=== PATIENT | female | born 1960 | race Two or more races ===

== ENCOUNTER 2017-07-26 12:57 | Outpatient (CLI) | payer OTHER ==
[~2017-07-26 12:57] MED LIST: AMARYL; ATACAND4 MG PO; CIPRO500 MG PO; CITALOPRAM HBR20 MG PO; GLUCOPHAGE XR500 MG PO; GLUMETZA1000 MG PO; GLYXAMBI 25 MG1 EACH PO; INTESTINEX1 CA1 PO; LOSARTAN POTASS25 MG PO; METFORMIN; SYNTHROID50 MCG PO; TRESIBA FL100 UNIT/1 SQ; ULTRACET PO; ULTRAM ER100 MG PO
== END 2017-07-26 14:57 | disposition home or self-care (01) ==
LOC: RAD 12:57
DX: M16.9 Osteoarthritis of hip, unspecified (principal)

== ENCOUNTER 2017-08-17 08:56 | Outpatient (CLI) | payer OTHER | END 2017-08-17 08:58 | disposition home or self-care (01) | LOC: NUCLEAR 08:56 | DX: M80.00XA Age-related osteoporosis with current pathological fracture, unspecified site, initial encounter for fracture (principal); M81.0 Age-related osteoporosis without current pathological fracture | CPT/HCPCS: 78306; A9503 ==

== ENCOUNTER 2019-03-08 12:42 | Emergency (ER) | payer OTHER ==
[~2019-03-08] VITALS: Ht 180.3 cm; Wt 81.6 kg
[2019-03-08] MEDS ORDERED: LEVOTHYROXINE25 MCG (13:04)
[2019-03-08] MEDS ORDERED: HUMALOG MI100 UNIT/2 (13:05)
[2019-03-08] MEDS ORDERED: TRULICITY1.5 MG/0.5 (13:05)
== END 2019-03-08 17:34 | disposition home or self-care (01) ==
LOC: ER 12:42
DX: M54.5 Low back pain (principal); R10.2 Pelvic and perineal pain

== ENCOUNTER 2020-02-07 06:21 | Outpatient (CLI) | payer OTHER ==
[~2020-02-07 06:21] MED LIST changes: +HUMALOG MI100 UNIT/2; +LEVOTHYROXINE25 MCG; +TRULICITY1.5 MG/0.5
== END 2020-02-07 07:03 | disposition home or self-care (01) ==
LOC: LAB 06:21
PROVIDERS: ATTEND Internal Medicine
DX: D50.0 Iron deficiency anemia secondary to blood loss (chronic) (principal); E78.2 Mixed hyperlipidemia; R94.5 Abnormal results of liver function studies; N39.0 Urinary tract infection, site not specified; E03.8 Other specified hypothyroidism; E11.65 Type 2 diabetes mellitus with hyperglycemia

== ENCOUNTER 2020-10-23 11:44 | Outpatient (CLI) | payer OTHER | END 2020-10-23 11:55 | disposition home or self-care (01) | LOC: RAD 11:44 → NUCLEAR 14:00 | PROVIDERS: ATTEND Internal Medicine | DX: M25.552 Pain in left hip (principal) ==

== ENCOUNTER 2020-10-23 13:41 | Outpatient (CLI) | payer OTHER | END 2020-10-23 13:42 | disposition home or self-care (01) | LOC: NUCLEAR 13:41 | PROVIDERS: ATTEND Specialist | DX: M81.0 Age-related osteoporosis without current pathological fracture (principal) ==

== ENCOUNTER 2020-11-19 10:05 | Emergency (ER) | payer OTHER ==
[~2020-11-19] VITALS: Ht 177.8 cm; Wt 81.6 kg
[2020-11-19] MEDS ORDERED: HUMALOG100 UNIT/2 SQ (10:31)
[2020-11-19] MEDS ORDERED: LANTUS SOL100 UNIT/1 SQ (10:32)
[2020-11-19] MEDS ORDERED: OZEMPIC1 MG/0.71 SQ (10:32)
[2020-11-19] MEDS ORDERED: NASAL MIST126 ML (10:33)
[2020-11-19] MEDS ORDERED: ALTACE2.5 MG PO (10:33)
[2020-11-19] MEDS ORDERED: SYNJARDY 12.5-1 EACH PO (10:33)
[2020-11-19] MEDS ORDERED: GLIMEPIRIDE4 M1 PO (10:33)
== END 2020-11-19 14:44 | disposition home or self-care (01) ==
LOC: ER 10:05
DX: S20.211A Contusion of right front wall of thorax, initial encounter (principal); W18.09XA Striking against other object with subsequent fall, initial encounter; Y93.89 Activity, other specified; Y92.89 Other specified places as the place of occurrence of the external cause; Y99.8 Other external cause status

== ENCOUNTER 2020-12-13 08:00 | Outpatient (CLI) | payer OTHER ==
[~2020-12-13 08:00] MED LIST changes: +ALTACE2.5 MG PO; +GLIMEPIRIDE4 M1 PO; +HUMALOG100 UNIT/2 SQ; +LANTUS SOL100 UNIT/1 SQ; +NASAL MIST126 ML; +OZEMPIC1 MG/0.71 SQ; +SYNJARDY 12.5-1 EACH PO
== END 2020-12-13 08:30 | disposition home or self-care (01) ==
LOC: PPH VACUNA 08:00
DX: Z23 Encounter for immunization (principal)

== ENCOUNTER 2021-01-03 08:00 | Outpatient (CLI) | payer OTHER | END 2021-01-03 08:30 | disposition home or self-care (01) | LOC: PPH VACUNA 08:00 | DX: Z23 Encounter for immunization (principal) ==

== ENCOUNTER 2021-07-11 09:15 | Outpatient (CLI) | payer OTHER | END 2021-07-11 09:40 | disposition home or self-care (01) | LOC: ASH CLINIC 09:15 | PROVIDERS: ATTEND Internal Medicine Pulmonary Disease | DX: U07.1 COVID-19 (principal); Z23 Encounter for immunization ==

== ENCOUNTER 2021-10-06 19:03 | Emergency (ER) | payer OTHER ==
[~2021-10-06] VITALS: Ht 177.8 cm; Wt 74.4 kg
== END 2021-10-06 21:06 | disposition home or self-care (01) ==
LOC: ER 19:03
DX: G56.02 Carpal tunnel syndrome, left upper limb (principal); E11.9 Type 2 diabetes mellitus without complications; Z79.4 Long term (current) use of insulin; Z79.84 Long term (current) use of oral hypoglycemic drugs; I10 Essential (primary) hypertension; Z91.013 Allergy to seafood

== ENCOUNTER 2021-10-08 14:24 | Outpatient (CLI) | payer OTHER | END 2021-10-08 14:42 | disposition home or self-care (01) | LOC: TOM 14:24 | PROVIDERS: ATTEND Internal Medicine | DX: R42 Dizziness and giddiness (principal); G45.9 Transient cerebral ischemic attack, unspecified; M65.132 Other infective (teno)synovitis, left wrist; M25.532 Pain in left wrist; S63.509D Unspecified sprain of unspecified wrist, subsequent encounter ==

== ENCOUNTER 2022-01-15 14:58 | Emergency (ER) | payer OTHER ==
[~2022-01-15] VITALS: Ht 177.8 cm; Wt 68.0 kg
== END 2022-01-15 18:47 | disposition home or self-care (01) ==
LOC: ER 14:58
DX: M54.32 Sciatica, left side (principal); Z88.6 Allergy status to analgesic agent; Z88.0 Allergy status to penicillin; Z88.2 Allergy status to sulfonamides; M54.17 Radiculopathy, lumbosacral region; Z88.8 Allergy status to other drugs, medicaments and biological substances

== ENCOUNTER 2023-01-12 12:54 | Outpatient (CLI) | payer OTHER | END 2023-01-12 12:58 | disposition home or self-care (01) | LOC: NUCLEAR 12:54 | PROVIDERS: ATTEND Internal Medicine | DX: M81.0 Age-related osteoporosis without current pathological fracture (principal) ==

== ENCOUNTER 2024-04-12 09:26 | Outpatient (CLI) | payer OTHER | END 2024-04-12 09:31 | disposition home or self-care (01) | LOC: RAD 09:26 | PROVIDERS: ATTEND Internal Medicine Pulmonary Disease | DX: J45.31 Mild persistent asthma with (acute) exacerbation (principal) ==

== ENCOUNTER 2024-09-13 06:56 | Outpatient (CLI) | payer OTHER | END 2024-09-13 07:05 | disposition home or self-care (01) | LOC: MRI 06:56 | PROVIDERS: ATTEND Surgery | DX: D12.6 Benign neoplasm of colon, unspecified (principal); R19.4 Change in bowel habit; K92.1 Melena; K43.2 Incisional hernia without obstruction or gangrene; D37.4 Neoplasm of uncertain behavior of colon; R63.4 Abnormal weight loss | CPT/HCPCS: 74181 ==

== ENCOUNTER → 2024-10-06 06:45 | Outpatient (CLI) | payer OTHER ==
[2024-10-06 07:26] LABS: PH,URINE 7.5 (5.0-8.0); URINE APPEARANCE Clear; URINE BILIRRUBIN Negative (NEGATIVE); URINE BLOOD Negative; URINE COLOR Yellow; URINE KETONE 15 (NEGATIVE); URINE LEUKOCYTE Negative; URINE NITRATE Negative; URINE PROTEIN Negative (NEGATIVE)
[2024-10-06 07:30] LABS: URINE RBC 2.3 uL (0.0-20.8); URINE WBC 1.8 uL (0.0-23.2)
[2024-10-06 07:36] LABS: URINE BACTERIA 3.6 uL (0.0-1933); URINE EPITHELIAL CELLS 1.2 uL (0.0-38.8); URINE GLUCOSE >=1000 MG/DL (NEGATIVE)
[2024-10-06 07:44] LABS: INR 1.1; PARTIAL THROMBOPLASTIN TIME 26.2 SECONDS (22.0-34.0); PROTHROMBIN TIME 11.9 SECONDS (9.0-11.5)
[2024-10-06 08:02] LABS: HEMATOCRIT 43.5 % (36.0-45.00); MEAN CELL VOLUME 88.9 fL (80.00-100.00); MEAN CORPUSCULAR HEMOGLOBIN 30.6 pg (27.00-32.0); MEAN CORPUSCULAR HGB CONC 34.4 g/dl (32.0-36.0); RED BLOOD COUNT 4.89 M/uL (4.00-6.00); RED CELL DISTRIBUTION WIDTH 13.9 % (11.5-14.5)
[2024-10-06 08:03] LABS: PLATELET COUNT 72 K/uL (150-450)
[2024-10-06 08:38] LABS: ALBUMIN 3.3 gm/dL (3.4-5.0); BILIRUBIN TOTAL 1.35 mg/dL (0.3-1.2); CALCIUM 8.5 mg/dL (8.5-10.1); CREATININE SERUM 0.51 mg/dL (0.55-1.02); GFR 121.02; GLOBULINA 2.9 G/DL (2.4-3.5); POTASSIUM 3.8 mEq/L (3.5-5.1); TOTAL PROTEIN 6.2 gm/dL (6.4-8.2)
== END | disposition home or self-care (01) ==
LOC: LAB 06:45
PROVIDERS: ATTEND Surgery
DX: D12.6 Benign neoplasm of colon, unspecified (principal); R19.4 Change in bowel habit; K92.1 Melena; K43.2 Incisional hernia without obstruction or gangrene; D37.4 Neoplasm of uncertain behavior of colon; R63.4 Abnormal weight loss

== ENCOUNTER → 2024-10-12 15:07 | Outpatient (CLI) | payer OTHER ==
[2024-10-12 15:53] LABS: INR 1.09; PROTHROMBIN TIME 11.8 SECONDS (9.0-11.5)
[2024-10-12 16:26] LABS: COL EPI 97 SECONDS (82-175)
== END | disposition home or self-care (01) ==
LOC: LAB 15:07
PROVIDERS: ATTEND Internal Medicine Geriatric Medicine
DX: D69.6 Thrombocytopenia, unspecified (principal); D68.9 Coagulation defect, unspecified

== ENCOUNTER → 2024-10-25 07:23 | Outpatient (CLI) | payer OTHER ==
[2024-10-25 07:56] LABS: BASO % 0.5 % (0.1-1.2); EOS # 0.19 (0.04-0.54); EOS % 3.5 % (0.7-7.0); HEMATOCRIT 44.4 % (34.1-44.9); HEMOGLOBIN 14.9 g/dL (11.2-15.7); LYMPH # 2.04 (1.18-3.74); LYMPH % 37.2 % (19.3-53.1); MEAN CORPUSCULAR HEMOGLOBIN 29.8 pg (25.6-32.2); MONO # 0.29 (0.24-0.82); MONO % 5.3 % (4.7-12.5); NEUT # 2.93 (1.56-6.13); NEUT % 53.3 % (34.0-71.1); RED CELL DISTRIBUTION WIDTH 12.9 % (11.6-14.4)
[2024-10-25 08:03] LABS: PLATELET COUNT 64 K/uL (163-369)
[2024-10-25 08:28] LABS: ALBUMIN 3.4 gm/dL (3.4-5.0); BILIRUBIN TOTAL 1.6 mg/dL (0.3-1.2); CALCIUM 8.7 mg/dL (8.5-10.1); CREATININE SERUM 0.49 mg/dL (0.55-1.02); GFR 126.35; GLOBULINA 2.8 G/DL (2.4-3.5); POTASSIUM 3.78 mEq/L (3.5-5.1); TOTAL PROTEIN 6.2 gm/dL (6.4-8.2)
== END | disposition home or self-care (01) ==
LOC: LAB 07:23
PROVIDERS: ATTEND Internal Medicine
DX: D69.59 Other secondary thrombocytopenia (principal)

== ENCOUNTER 2024-12-06 10:29 | Outpatient (CLI) | payer OTHER | END 2024-12-06 10:31 | disposition home or self-care (01) | LOC: SONOGRAMA 10:29 | PROVIDERS: ATTEND Internal Medicine | DX: M25.512 Pain in left shoulder (principal); M75.52 Bursitis of left shoulder; M75.122 Complete rotator cuff tear or rupture of left shoulder, not specified as traumatic ==

== ENCOUNTER → 2025-01-11 07:20 | Outpatient (CLI) | payer OTHER ==
[2025-01-11 08:16] LABS: BASO % 0.5 % (0.1-1.2); EOS # 0.23 (0.04-0.54); EOS % 3.6 % (0.7-7.0); LYMPH # 2.12 (1.18-3.74); LYMPH % 33.6 % (19.3-53.1); MEAN PLATELET VOLUME 13.10 fl (9.4-12.4); MONO # 0.33 (0.24-0.82); MONO % 5.2 % (4.7-12.5); NEUT # 3.58 (1.56-6.13); NEUT % 56.8 % (34.0-71.1); RED CELL DISTRIBUTION WIDTH 12.7 % (11.6-14.4)
[2025-01-11 08:43] LABS: INR 1.05
[2025-01-11 09:13] LABS: % SATURACION 24.0 % (15-50); ALT/SGPT 22.0 U/L (12-78); AST/SGOT 18.0 U/L (15-37); BILIRUBIN TOTAL 1.33 mg/dL (0.3-1.2); BUN CREA RATIO 34.0 (7.0-25.0); CREATININE SERUM 0.47 mg/dL (0.55-1.02); FE 78.0 ug/dl (50-170); GFR 132.58; GLOBULINA 2.8 G/DL (2.4-3.5); GLUCOSE FASTING 146.0 mg/dL (65-100); LDH 293.0 U/L (84-246); OSMOLALITY SERUM 289.0 MOSM/KG (275-295); T4 FREE 1.2 NG/ML (0.76-1.46); TSH 1.11 uIU/mL (0.358-3.74)
[2025-01-11 09:40] LABS: COL EPI 110 SECONDS (82-175)
[2025-01-11 10:31] LABS: FOLIC ACID > 20.00 ng/ml (4.78-20); VITAMIN D3 25 HYDROXY 47.15 ng/ml (30-120)
[2025-01-12 09:02] LABS: MANUAL PLATELET COUNT 82
[2025-01-12 09:08] LABS: ANTI THYROID PEROXIDASE < 9 IU/mL (0-34)
== END | disposition home or self-care (01) ==
LOC: LAB 07:20
PROVIDERS: ATTEND Internal Medicine Hematology & Oncology
DX: D69.3 Immune thrombocytopenic purpura (principal); I10 Essential (primary) hypertension; E55.9 Vitamin D deficiency, unspecified; E11.9 Type 2 diabetes mellitus without complications; E03.8 Other specified hypothyroidism; D50.8 Other iron deficiency anemias; R79.9 Abnormal finding of blood chemistry, unspecified; R74.02 Elevation of levels of lactic acid dehydrogenase [LDH]; K76.89 Other specified diseases of liver; D51.1 Vitamin B12 deficiency anemia due to selective vitamin B12 malabsorption with proteinuria; E06.3 Autoimmune thyroiditis; R97.0 Elevated carcinoembryonic antigen [CEA]; D68.8 Other specified coagulation defects

== ENCOUNTER 2025-01-11 07:52 | Outpatient (CLI) | payer OTHER | END 2025-01-11 07:54 | disposition home or self-care (01) | LOC: RAD 07:52 | PROVIDERS: ATTEND Orthopaedic Surgery | DX: M25.512 Pain in left shoulder (principal); M75.122 Complete rotator cuff tear or rupture of left shoulder, not specified as traumatic ==

== ENCOUNTER 2025-03-16 09:08 | Outpatient (CLI) | payer OTHER | END 2025-03-16 09:09 | disposition home or self-care (01) | LOC: NUCLEAR 09:08 | PROVIDERS: ATTEND Internal Medicine | DX: M81.0 Age-related osteoporosis without current pathological fracture (principal) ==

== ENCOUNTER 2025-04-20 07:20 | Outpatient (CLI) | payer OTHER ==
[2025-04-20 08:30] LABS: BASO % 0.5 % (0.1-1.2); EOS # 0.25 (0.04-0.54); EOS % 4.4 % (0.7-7.0); LYMPH # 2.02 (1.18-3.74); LYMPH % 35.4 % (19.3-53.1); MEAN PLATELET VOLUME 13.20 fl (9.4-12.4); MONO # 0.34 (0.24-0.82); MONO % 6.0 % (4.7-12.5); NEUT # 3.05 (1.56-6.13); NEUT % 53.5 % (34.0-71.1); RED CELL DISTRIBUTION WIDTH 13.2 % (11.6-14.4)
[2025-04-20 09:13] LABS: ALT/SGPT 27.0 U/L (12-78); AST/SGOT 13.0 U/L (15-37); BILIRUBIN TOTAL 1.24 mg/dL (0.3-1.2); BUN CREA RATIO 43.0 (7.0-25.0); CREATININE SERUM 0.46 mg/dL (0.55-1.02); FE 65.0 ug/dl (50-170); GFR 135.91; GLOBULINA 2.5 G/DL (2.4-3.5); GLUCOSE FASTING 132.0 mg/dL (65-100); LDH 228.0 U/L (84-246); OSMOLALITY SERUM 293.0 MOSM/KG (275-295)
[2025-04-20 12:14] LABS: FOLIC ACID > 20.00 ng/ml (4.78-20)
== END 2025-04-20 07:57 | disposition home or self-care (01) ==
LOC: LAB 07:20
PROVIDERS: ATTEND Internal Medicine
DX: D12.6 Benign neoplasm of colon, unspecified (principal); R19.4 Change in bowel habit; K92.1 Melena; K43.2 Incisional hernia without obstruction or gangrene; D37.4 Neoplasm of uncertain behavior of colon; R63.4 Abnormal weight loss; D69.3 Immune thrombocytopenic purpura; E55.9 Vitamin D deficiency, unspecified; E11.9 Type 2 diabetes mellitus without complications; E03.8 Other specified hypothyroidism

== ENCOUNTER 2025-05-01 11:26 | Outpatient (CLI) | payer OTHER | END 2025-05-01 11:31 | disposition home or self-care (01) | LOC: EKG 11:26 | PROVIDERS: ATTEND Surgery | DX: I10 Essential (primary) hypertension (principal) ==

== ENCOUNTER → 2025-05-02 13:30 | Outpatient (CLI) | payer OTHER ==
[2025-05-02 14:17] LABS: URINE APPEARANCE Clear; URINE BILIRRUBIN Negative (NEGATIVE); URINE BLOOD Negative; URINE COLOR Yellow; URINE KETONE 15 (NEGATIVE); URINE LEUKOCYTE Negative; URINE NITRATE Negative; URINE PROTEIN Negative (NEGATIVE); URINE UROBILINOGEN 0.2 E.U./dl
[2025-05-02 14:20] LABS: URINE BACTERIA 16.0 uL (0.0-1933); URINE EPITHELIAL CELLS 4.9 uL (0.0-38.8); URINE WBC 4.7 uL (0.0-23.2)
[2025-05-02 15:09] LABS: URINE GLUCOSE >=1000 MG/DL (NEGATIVE); URINE RBC 1.5 uL (0.0-20.8)
[2025-05-02 15:10] LABS: URINE CAST 0.70 uL (0.0-1.40)
== END | disposition home or self-care (01) ==
LOC: LAB 13:30
PROVIDERS: ATTEND Internal Medicine
DX: N39.0 Urinary tract infection, site not specified (principal)

== ENCOUNTER 2025-05-10 10:00 | Inpatient (IN) | payer OTHER ==
[~2025-05-10] VITALS: Ht 177.8 cm; Wt 65.8 kg
[2025-05-10] MEDS ORDERED: CEFOXITIN SODIUM 2,000 MG VIAL IV ONE (10:40)
[2025-05-10] MEDS ORDERED: BUPIVACAINE HCL/MPF 0.5% 30ML VIAL ONE (13:03)
[2025-05-10] MEDS ORDERED: LIDOCAINE HCL 1%/EPINEPHRINE 20ML VIAL IJ ONE ×2 (13:03→14:00)
[2025-05-10] MEDS ORDERED: DIPHENHYDRAMINE HCL 50 MG/ML VIAL 1ML ONE (13:12)
[2025-05-10] MEDS ORDERED: BUPIVACAINE HCL 30 ML VIAL IJ ONE (14:00)
[2025-05-10] MEDS ORDERED: CEFOXITIN SODIUM 2,000 MG VIAL IV SCH (14:00)
[2025-05-10] MEDS ORDERED: SUGAMMADEX SODIUM 200 MG/2 ML VIAL IV ONE ×2 (14:08→15:15)
[2025-05-10] MEDS ORDERED: TRAM1TAB98 PO (16:14)
[2025-05-10] MEDS ORDERED: PEPCID AC20 MG PO (16:15)
[2025-05-10] MEDS ORDERED: ZOFRAN8 MG PO (16:15)
[2025-05-10] MEDS ORDERED: ACETAMINOPHEN 500 MG GEL..CAP PO ONE ×2 (16:45→17:15)
[2025-05-10] MEDS ORDERED: ONDANSETRON HCL 2 MG/ML VIAL IV ONE (17:15)
[2025-05-10 20:06] LABS: BASO % 0.1 % (0.1-1.2); EOS # 0.00 (0.04-0.54); EOS % 0.0 % (0.7-7.0); LYMPH # 0.79 (1.18-3.74); LYMPH % 6.2 % (19.3-53.1); MEAN PLATELET VOLUME 12.30 fl (9.4-12.4); MONO # 0.39 (0.24-0.82); MONO % 3.0 % (4.7-12.5); NEUT # 11.56 (1.56-6.13); NEUT % 90.4 % (34.0-71.1); RED CELL DISTRIBUTION WIDTH 13.3 % (11.6-14.4)
[2025-05-10] MEDS ORDERED: FAMOTIDINE/PF 20 MG in 0.9 % SODIUM CHLORIDE 8 ML IV PUSH SCH (22:10)
[2025-05-10] MEDS ORDERED: TRAMADOL HCL 50 MG TABLET PO PRN (22:15)
[2025-05-10] MEDS ORDERED: ONDANSETRON HCL 4 MG in 0.9 % SODIUM CHLORIDE 50 ML IV PRN (22:15)
[2025-05-10] MEDS ORDERED: RINGERS SOLUTION,LACTATED 1,000 ML IV SCH (22:15)
[2025-05-11] MEDS ORDERED: FAMOTIDINE/PF 20 MG/2 ML VIAL ONE (08:33)
[2025-05-11] MEDS ORDERED: MORPHINE SULFATE 2 MG/ML SYRINGE IV ONE (09:00)
[2025-05-11] MEDS ORDERED: DICYCLOMINE HCL 10 MG CAPSULE PO PRN (10:15)
[2025-05-11 10:54] LABS: BASO % 0.2 % (0.1-1.2); EOS # 0.01 (0.04-0.54); EOS % 0.1 % (0.7-7.0); LYMPH # 1.53 (1.18-3.74); LYMPH % 15.0 % (19.3-53.1); MEAN PLATELET VOLUME 12.10 fl (9.4-12.4); MONO # 0.84 (0.24-0.82); MONO % 8.2 % (4.7-12.5); NEUT # 7.78 (1.56-6.13); NEUT % 76.2 % (34.0-71.1)
[2025-05-11] MEDS ORDERED: Cyanocobalamin/Mecobalamin 1 TAB.SL SL NR (11:00)
[2025-05-11 11:11] LABS: RED CELL DISTRIBUTION WIDTH 17.2 % (11.6-14.4)
[2025-05-11 11:23] LABS: INR 1.09
[2025-05-11 11:29] LABS: COL EPI 80 SECONDS (82-175)
[2025-05-11 11:33] LABS: ALT/SGPT 62.0 U/L (12-78); AST/SGOT 49.0 U/L (15-37); BILIRUBIN TOTAL 2.53 mg/dL (0.3-1.2); BUN CREA RATIO 35.0 (7.0-25.0); CREATININE SERUM 0.4 mg/dL (0.55-1.02); GFR 159.7; GLOBULINA 2.4 G/DL (2.4-3.5); GLUCOSE FASTING 188.0 mg/dL (65-100); OSMOLALITY SERUM 294.0 MOSM/KG (275-295)
[2025-05-11 17:00] VITALS: BP 144/70; O2SAT 98
[2025-05-11] MEDS ORDERED: ROSUVASTATIN CALCIUM 10 MG TABLET PO SCH (17:00)
[2025-05-11] MEDS ORDERED: SOD FERRIC GLUC COMPLX/SUCROSE 62.5 MG/5 ML AMPUL IV NR (19:15)
[2025-05-12 01:19] VITALS: BP 126/74; O2SAT 97
[2025-05-12] MEDS ORDERED: LEVOTHYROXINE SODIUM 25 MCG TABLET PO SCH (06:00)
[2025-05-12] MEDS ORDERED: Cyanocobalamin/Mecobalamin 1 TAB.SL SL SCH (09:00)
[2025-05-12] MEDS ORDERED: SOD FERRIC GLUC COMPLX/SUCROSE 62.5 MG/5 ML AMPUL IV SCH (09:00)
[2025-05-12] MEDS ORDERED: TAMSULOSIN HCL 0.4 MG CAP PO SCH (11:15)
[2025-05-12] MEDS ORDERED: ACETAMINOPHEN 500 MG GEL..CAP PO PRN (15:30)
[2025-05-12 16:00] VITALS: BP 121/56; O2SAT 97
[2025-05-12] MEDS ORDERED: TRAMADOL HCL 50 MG TABLET PO PRN (18:00)
[2025-05-12] MEDS ORDERED: INSULIN LISPRO 1,000 UNIT/10 ML UNITS SUBCUTANEO PRN (19:00)
[2025-05-12] MEDS ORDERED: DEXTROSE 50 % IN WATER 0.5 G/ML DISP.SYRIN IV PRN (19:00)
[2025-05-13 02:05] VITALS: BP 110/71; O2SAT 97
[2025-05-13 07:49] LABS: BASO % 0.5 % (0.1-1.2); EOS # 0.24 (0.04-0.54); EOS % 3.7 % (0.7-7.0); LYMPH # 1.75 (1.18-3.74); LYMPH % 27.0 % (19.3-53.1); MEAN PLATELET VOLUME 11.60 fl (9.4-12.4); MONO # 0.55 (0.24-0.82); MONO % 8.5 % (4.7-12.5); NEUT # 3.89 (1.56-6.13); NEUT % 60.0 % (34.0-71.1); RED CELL DISTRIBUTION WIDTH 16.1 % (11.6-14.4)
[2025-05-13 08:00] VITALS: BP 104/65; O2SAT 97
[2025-05-13 08:18] LABS: ALT/SGPT 51.0 U/L (12-78); AST/SGOT 25.0 U/L (15-37); BILIRUBIN TOTAL 2.47 mg/dL (0.3-1.2); BILIRUBIN,CONJUGATED 0.44 mg/dL (0.0-0.2); BUN CREA RATIO 28.0 (7.0-25.0); CREATININE SERUM 0.32 mg/dL (0.55-1.02); GFR 206.6; GLOBULINA 2.4 G/DL (2.4-3.5); GLUCOSE FASTING 149.0 mg/dL (65-100); OSMOLALITY SERUM 290.0 MOSM/KG (275-295)
[2025-05-13] MEDS ORDERED: PANTOPRAZOLE SODIUM 40 MG TABLET.DR PO SCH (09:00)
[2025-05-13] MEDS ORDERED: HYDROCORTISONE 2.5% 20 GM TUBE TOP SCH (13:00)
[2025-05-13 16:50] VITALS: BP 126/62; O2SAT 98
[2025-05-13] MEDS ORDERED: POLYETHYLENE GLYCOL 3350 17 GM BLIST.PACK PO SCH (21:00)
[2025-05-14 00:01] VITALS: BP 111/71; O2SAT 98
[2025-05-14 06:31] LABS: BASO % 0.3 % (0.1-1.2); EOS # 0.33 (0.04-0.54); EOS % 5.3 % (0.7-7.0); LYMPH # 1.48 (1.18-3.74); LYMPH % 23.8 % (19.3-53.1); MEAN PLATELET VOLUME 11.40 fl (9.4-12.4); MONO # 0.41 (0.24-0.82); MONO % 6.6 % (4.7-12.5); NEUT # 3.97 (1.56-6.13); NEUT % 63.7 % (34.0-71.1); RED CELL DISTRIBUTION WIDTH 15.7 % (11.6-14.4)
[2025-05-14 07:40] VITALS: BP 114/57; O2SAT 98
[2025-05-14] MEDS ORDERED: DICYCLOMINE HCL10 MG PO (10:35)
[2025-05-14] MEDS ORDERED: TRAM1TAB98 PO (10:35)
== END 2025-05-14 12:30 | disposition home or self-care (01) | DRG 357 ==
LOC: CIR.AMB 10:00 → SURG 19:37
PROVIDERS: Internal Medicine Geriatric Medicine; ADMIT Surgery; ATTEND Surgery
PROC: BF522Z0 Other Imaging of Gallbladder using Fluorescing Agent, Intraoperative (ICD-10-PCS; 2025-05-10)
PROC: 0FT44ZZ Resection of Gallbladder, Percutaneous Endoscopic Approach (ICD-10-PCS; principal; 2025-05-10 13:00)
DX: D12.6 Benign neoplasm of colon, unspecified (principal); K92.1 Melena; K43.2 Incisional hernia without obstruction or gangrene; D37.4 Neoplasm of uncertain behavior of colon

== ENCOUNTER 2025-05-17 17:12 | Inpatient (IN) | payer OTHER ==
[~2025-05-17] VITALS: Ht 152.4 cm; Wt 74.8 kg
[~2025-05-17 17:12] MED LIST changes: +8 HOUR650 MG PO; +DICYCLOMINE HCL10 MG PO; +FORTAMET1000 MG PO; +GLIMEPIRIDE4 MG PO; +LANTUS SOL100 UNIT/1 SUBCUTANEO; +MILLIPRED5 MG; +NORFLEX100MG PO; +OZEMPIC1 MG/0.71; +PEPCID AC20 MG PO; +PERCOGESIC EXT1 EACH PO; +RAMIPRIL1.25 MG; +ROSUVASTATIN-E1 EAC2; +TAMS0.4C PO; +TRAM1TAB98 PO; +TRULICITY1.5 MG/0.5 SUBCUTANEO; +ZOFRAN8 MG PO
--- NOTE | 2025-05-17 17:32 | NUR ---
PACIENTE ALERTA Y ORIENTADA X3. REFIERE VENIR POR DOLOR EN COSTADO DERECHO, VOMITOS X2, NAUSEAS Y DOLOR DE SHARONA. REFIERE QUE FUE OPERADA EL JUEVES DE LA VESICULA. SE ESTIMAN VITALES Y SE UBICA. PACIENTE PREVIAMENTE CANALIZADA DE AMBULANCIA CON ANGIO #22 CON UN [id number] KVO.
[2025-05-17] MEDS ORDERED: DIPHENHYDRAMINE HCL 50 MG/ML VIAL 1ML IV STA (18:04)
[2025-05-17] MEDS ORDERED: METHYLPREDNISOLONE SOD SUCC 125 MG VIAL IV STA (18:04)
[2025-05-17] MEDS ORDERED: MORPHINE SULFATE 4 MG/ML VIAL IV STA (18:04)
[2025-05-17] MEDS ORDERED: ONDANSETRON HCL 2 MG/ML VIAL IV STA (18:05)
[2025-05-17] MEDS ORDERED: 0.9 % SODIUM CHLORIDE 1,000 ML IV STA (18:05)
[2025-05-17] MEDS ORDERED: ONDANSETRON HCL 2 MG/ML VIAL ONE (18:33)
[2025-05-17] MEDS ORDERED: DIPHENHYDRAMINE HCL 50 MG/ML VIAL 1ML ONE (18:33)
[2025-05-17] MEDS ORDERED: METHYLPREDNISOLONE SOD SUCC 40 MG VIAL ONE (18:33)
--- NOTE | 2025-05-17 18:53 | NUR ---
SE ORIENTA PTE SOBRE TX A SEGUIR, LA MISMA REFIERE ENTENDER. SE LONNIE MUESTRA DE LAB, SE CANALIZA Y SE ADMINISTRA MED DELORES ORDEN MEDICA
[2025-05-17 18:58] LABS: BASO % 0.4 % (0.1-1.2); EOS # 0.04 (0.04-0.54); EOS % 0.2 % (0.7-7.0); LYMPH # 1.15 (1.18-3.74); LYMPH % 7.1 % (19.3-53.1); MEAN PLATELET VOLUME 11.10 fl (9.4-12.4); MONO # 0.76 (0.24-0.82); MONO % 4.7 % (4.7-12.5); NEUT # 13.70 (1.56-6.13); NEUT % 84.9 % (34.0-71.1); RED CELL DISTRIBUTION WIDTH 17.2 % (11.6-14.4)
[2025-05-17 19:13] LABS: URINE APPEARANCE Clear; URINE BILIRRUBIN Negative (NEGATIVE); URINE BLOOD Small; URINE COLOR Yellow; URINE LEUKOCYTE Negative; URINE NITRATE Negative; URINE PROTEIN 30 (NEGATIVE); URINE UROBILINOGEN 0.2 E.U./dl
[2025-05-17 19:17] LABS: URINE BACTERIA 10.2 uL (0.0-1933); URINE CAST 1.84 uL (0.0-1.40); URINE EPITHELIAL CELLS 1.9 uL (0.0-38.8)
[2025-05-17 19:25] LABS: INR 1.06
[2025-05-17 19:36] LABS: ALT/SGPT 44.0 U/L (12-78); AST/SGOT 31.0 U/L (15-37); BILIRUBIN TOTAL 1.62 mg/dL (0.3-1.2); BILIRUBIN,CONJUGATED 0.69 mg/dL (0.0-0.2); BUN CREA RATIO 38.0 (7.0-25.0); CREATININE SERUM 0.8 mg/dL (0.55-1.02); GFR 71.76; GLOBULINA 4.5 G/DL (2.4-3.5)
[2025-05-17 19:40] LABS: OSMOLALITY SERUM 304.0 MOSM/KG (275-295)
[2025-05-17 19:41] LABS: GLUCOSE FASTING 268.0 mg/dL (65-100)
[2025-05-17 19:42] LABS: URINE GLUCOSE >=1000 MG/DL (NEGATIVE); URINE KETONE >=160 (NEGATIVE); URINE RBC 1.8 uL (0.0-20.8); URINE WBC 1.0 uL (0.0-23.2)
[2025-05-17] MEDS ORDERED: METRONIDAZOLE/SODIUM CHLORIDE 500 MG/100 ML PIGGYBACK IV SCH (19:46)
[2025-05-17] MEDS ORDERED: CIPROFLOXACIN IN 5 % DEXTROSE 400 MG/200 ML PIGGYBAG IV SCH (21:00)
[2025-05-17] MEDS ORDERED: SODIUM BICARBONATE 1 MEQ/ML DISP.SYRIN 50ML IV ONE ×3 (21:23→23:15)
[2025-05-17] MEDS ORDERED: SODIUM BICARBONATE IV STA (21:24)
[2025-05-17] MEDS ORDERED: 0.9 % SODIUM CHLORIDE 500 ML IV STA (21:29)
[2025-05-17] MEDS ORDERED: ONDANSETRON HCL 4 MG in 0.9 % SODIUM CHLORIDE 50 ML IV PRN (21:45)
[2025-05-17] MEDS ORDERED: INSULIN REGULAR, HUMAN 100 UNITS in 0.9 % SODIUM CHLORIDE 100 ML IV SCH (21:45)
[2025-05-17] MEDS ORDERED: 0.9 % SODIUM CHLORIDE 1,000 ML IV SCH (21:45)
[2025-05-17] MEDS ORDERED: ACETAMINOPHEN 500 MG GEL..CAP PO PRN (21:45)
[2025-05-17] MEDS ORDERED: 0.9 % SODIUM CHLORIDE 1,000 ML IV ONE (22:00)
[2025-05-17] MEDS ORDERED: POTASSIUM CHLORIDE/NACL 0.9% 1,000 ML IV NR (22:00)
[2025-05-17] MEDS ORDERED: INSULIN REGULAR, HUMAN 1,000 UNIT/10 ML UNITS ONE (22:17)
[2025-05-17] MEDS ORDERED: PROPOFOL 10,000 MCG/ML VIAL ONE (22:22)
[2025-05-17] MEDS ORDERED: levoFLOXacin IN DEXTROSE 5 % 150 ML IV SCH (22:39)
[2025-05-17] MEDS ORDERED: PROPOFOL 100 ML IV SCH (22:45)
[2025-05-17] MEDS ORDERED: SODIUM BICARBONATE 100 MEQ in SODIUM CHLORIDE 0.45 % 1,000 ML IV ONE (22:45)
[2025-05-17] MEDS ORDERED: CIPROFLOXACIN IN 5 % DEXTROSE 400 MG/200 ML PIGGYBAG IV ONE (23:39)
[2025-05-17] MEDS ORDERED: METRONIDAZOLE/SODIUM CHLORIDE 500 MG/100 ML PIGGYBACK IV ONE (23:39)
[2025-05-17 23:52] VITALS: BP 150/88; O2SAT 99
[2025-05-18] VITALS (12 sets, daily range): BP systolic 110–139; BP diastolic 53–78; O2SAT 96–100
[2025-05-18] MEDS ORDERED: SODIUM BICARBONATE 1 MEQ/ML DISP.SYRIN 50ML IV ONE (01:35)
[2025-05-18 01:58] LABS: D DIMER 2.93 MG/L
[2025-05-18 02:02] LABS: BUN CREA RATIO 30.0 (7.0-25.0); CREATININE SERUM 1.01 mg/dL (0.55-1.02); GFR 54.84; LDH 640.0 U/L (84-246)
[2025-05-18 02:22] LABS: GLUCOSE FASTING 277.0 mg/dL (65-100); OSMOLALITY SERUM 318.0 MOSM/KG (275-295)
[2025-05-18] MEDS ORDERED: SODIUM BICARBONATE 150 MEQ in DEXTROSE 5 % IN WATER 1,000 ML IV SCH (02:45)
[2025-05-18] MEDS ORDERED: FAMOTIDINE/PF 20 MG in 0.9 % SODIUM CHLORIDE 8 ML IV PUSH SCH (05:00)
[2025-05-18 06:53] LABS: COL EPI 87 SECONDS (82-175)
[2025-05-18 07:26] LABS: TSH 0.136 uIU/mL (0.358-3.74)
[2025-05-18] MEDS ORDERED: SODIUM CHLORIDE 0.45 % 1,000 ML IV SCH (08:45)
[2025-05-18] MEDS ORDERED: CIPROFLOXACIN IN 5 % DEXTROSE 200 ML IV SCH (09:00)
[2025-05-18 09:19] LABS: BASO % 0.2 % (0.1-1.2); EOS # 0.00 (0.04-0.54); EOS % 0.0 % (0.7-7.0); LYMPH # 1.04 (1.18-3.74); LYMPH % 9.4 % (19.3-53.1); MEAN PLATELET VOLUME 10.70 fl (9.4-12.4); MONO # 0.93 (0.24-0.82); MONO % 8.4 % (4.7-12.5); NEUT # 8.79 (1.56-6.13); NEUT % 79.4 % (34.0-71.1); RED CELL DISTRIBUTION WIDTH 16.9 % (11.6-14.4)
[2025-05-18 09:43] LABS: ALT/SGPT 33.0 U/L (12-78); AST/SGOT 18.0 U/L (15-37); BILIRUBIN TOTAL 1.34 mg/dL (0.3-1.2); BUN CREA RATIO 23.0 (7.0-25.0); CREATININE SERUM 1.08 mg/dL (0.55-1.02); GFR 50.76; GLOBULINA 3.4 G/DL (2.4-3.5)
[2025-05-18] MEDS ORDERED: POTASSIUM CHLORIDE 20MEQ/100ML H2O PB IV ONE ×2 (09:45→17:00)
[2025-05-18] MEDS ORDERED: POTASSIUM PHOS,M-BASIC-D-BASIC 18 MM in 0.9 % SODIUM CHLORIDE 500 ML IV ONE (10:00)
[2025-05-18 10:07] LABS: OSMOLALITY SERUM 323.0 MOSM/KG (275-295)
[2025-05-18 10:09] LABS: GLUCOSE FASTING 265.0 mg/dL (65-100)
[2025-05-18] MEDS ORDERED: METHYLPREDNISOLONE SOD SUCC 125 MG VIAL ONE (10:27)
[2025-05-18] MEDS ORDERED: DIPHENHYDRAMINE HCL 50 MG/ML VIAL 1ML ONE (10:27)
[2025-05-18] MEDS ORDERED: AZTREONAM 1,000 MG VIAL IV STA (11:12)
[2025-05-18] MEDS ORDERED: LINEZOLID IN DEXTROSE 5% 600 MG/300 ML PIGGYBAG IV STA (11:12)
[2025-05-18] MEDS ORDERED: DEXTROSE 5 % IN WATER 1,000 ML IV SCH (12:00)
[2025-05-18] MEDS ORDERED: POLYVINYL ALCOHOL 15 ML DROPS OP SCH (12:06)
[2025-05-18] MEDS ORDERED: CHLORHEXIDINE GLUCONATE 15ML BRUSH KIT MM SCH (12:06)
[2025-05-18] MEDS ORDERED: 0.9 % SODIUM CHLORIDE 10 ML VIAL IJ ONE (15:45)
[2025-05-18 17:49] LABS: BUN CREA RATIO 26.0 (7.0-25.0); CREATININE SERUM 0.81 mg/dL (0.55-1.02); GFR 70.74; GLUCOSE FASTING 169.0 mg/dL (65-100)
[2025-05-18 17:50] LABS: OSMOLALITY SERUM 320.0 MOSM/KG (275-295)
[2025-05-18] MEDS ORDERED: INSULIN NPH HUMAN ISOPHANE 1,000 UNITS/10 ML UNITS SUBCUTANEO ONE (18:15)
[2025-05-18] MEDS ORDERED: INSULIN LISPRO 1,000 UNIT/10 ML UNITS SUBCUTANEO PRN (18:15)
[2025-05-18] MEDS ORDERED: DEXTROSE 50 % IN WATER 0.5 G/ML DISP.SYRIN IV PRN (18:15)
[2025-05-18] MEDS ORDERED: INSULIN NPH HUMAN ISOPHANE 1,000 UNITS/10 ML UNITS SUBCUTANEO NR (19:15)
[2025-05-18] MEDS ORDERED: LINEZOLID IN DEXTROSE 5% 600 MG/300 ML PIGGYBAG IV SCH (21:00)
[2025-05-18] MEDS ORDERED: levoFLOXacin IN DEXTROSE 5 % 150 ML IV SCH (21:00)
[2025-05-18] MEDS ORDERED: AZTREONAM 1,000 MG VIAL IV SCH (21:00)
[2025-05-19] VITALS (14 sets, daily range): BP systolic 121–148; BP diastolic 48–73; O2SAT 94–100
[2025-05-19] MEDS ORDERED: INSULIN NPH HUMAN ISOPHANE 1,000 UNITS/10 ML UNITS SUBCUTANEO STA (00:54)
[2025-05-19 07:52] LABS: BUN CREA RATIO 23.0 (7.0-25.0); CREATININE SERUM 0.75 mg/dL (0.55-1.02); GFR 77.31
[2025-05-19 08:43] LABS: OSMOLALITY SERUM 321.0 MOSM/KG (275-295)
[2025-05-19 08:44] LABS: GLUCOSE FASTING 245.0 mg/dL (65-100)
[2025-05-19] MEDS ORDERED: INSULIN NPH HUMAN ISOPHANE 1,000 UNITS/10 ML UNITS SUBCUTANEO SCH (09:00)
[2025-05-19] MEDS ORDERED: CHLORHEXIDINE GLUCONATE 120 ML BOTTLE TOP ONE (09:08)
[2025-05-19] MEDS ORDERED: POTASSIUM CHLORIDE IN WATER 100 ML IV STA (11:07)
[2025-05-19] MEDS ORDERED: DEXTROSE 5 %-0.45 % SOD CHLORD 1,000 ML IV SCH (11:15)
[2025-05-20] VITALS (9 sets, daily range): BP systolic 103–145; BP diastolic 55–78; O2SAT 20–100
[2025-05-20] MEDS ORDERED: 0.9 % SODIUM CHLORIDE 10 ML VIAL IJ ONE (04:48)
[2025-05-20 08:25] LABS: ALT/SGPT 20.0 U/L (12-78); AST/SGOT 11.0 U/L (15-37); BILIRUBIN TOTAL 1.5 mg/dL (0.3-1.2); BUN CREA RATIO 25.0 (7.0-25.0); CREATININE SERUM 0.48 mg/dL (0.55-1.02); GFR 129.4; GLOBULINA 2.2 G/DL (2.4-3.5)
[2025-05-20 08:37] LABS: OSMOLALITY SERUM 312.0 MOSM/KG (275-295)
[2025-05-20 08:38] LABS: GLUCOSE FASTING 221.0 mg/dL (65-100)
[2025-05-20] MEDS ORDERED: MAGNESIUM SULFATE/D5W 1GM/100ML PIGGYBAG IV ONE (11:15)
[2025-05-20] MEDS ORDERED: MAGNESIUM SULFATE/D5W 1GM/100ML PIGGYBAG IV NR (12:00)
[2025-05-20] MEDS ORDERED: POTASSIUM PHOS,M-BASIC-D-BASIC 3 MM/ML VIAL IV SCH (14:00)
[2025-05-20] MEDS ORDERED: POTASSIUM PHOS,M-BASIC-D-BASIC 3 MM/ML VIAL IV ONE (14:00)
[2025-05-20] MEDS ORDERED: INSULIN NPH HUMAN ISOPHANE 1,000 UNITS/10 ML UNITS SUBCUTANEO SCH (17:00)
[2025-05-20] MEDS ORDERED: POTASSIUM CHLORIDE 20MEQ/100ML H2O PB IV SCH (21:00)
[2025-05-20] MEDS ORDERED: DEXTROSE 5 %-0.45 % SOD CHLORD 1,000 ML IV SCH (21:30)
[2025-05-21 04:00] VITALS: BP 124/67; O2SAT 100
[2025-05-21 07:15] VITALS: BP 136/78; O2SAT 100
[2025-05-21] MEDS ORDERED: POTASSIUM CHLORIDE/D5W 20 MEQ/1,000 ML PIGGYBAG IV SCH (08:00)
[2025-05-21 12:10] VITALS: BP 133/78; O2SAT 100
[2025-05-21] MEDS ORDERED: DEXTROSE 5 % IN WATER 1,000 ML IV SCH (12:30)
[2025-05-21] MEDS ORDERED: POTASSIUM CHLORIDE 20MEQ/100ML H2O PB IV SCH (13:00)
[2025-05-21 15:10] VITALS: BP 140/84; O2SAT 100
[2025-05-21] MEDS ORDERED: AA 5 %/CALCIUM/LYTES/DEXT 20 % 2,000 ML CENTRAL SCH (17:00)
[2025-05-21] MEDS ORDERED: LIDOCAINE 1 EACH ADH..PATCH TOP SCH (17:00)
[2025-05-21] MEDS ORDERED: POTASSIUM CHLORIDE IN WATER 40 MEQ/100 ML PIGGYBAG IV NR (19:00)
[2025-05-21] MEDS ORDERED: fentaNYL CITRATE 50 MCG/ML AMPUL IV PUSH ONE (19:15)
[2025-05-21] MEDS ORDERED: MIDAZOLAM HCL 2 MG/2 ML VIAL IV PUSH ONE (19:15)
[2025-05-21 19:54] VITALS: BP 143/87; O2SAT 100
[2025-05-21] MEDS ORDERED: FAT EMULSIONS 250 ML IV SCH (21:00)
[2025-05-21 22:12] LABS: BASO % 0.1 % (0.1-1.2); EOS # 0.16 (0.04-0.54); EOS % 2.2 % (0.7-7.0); LYMPH # 1.64 (1.18-3.74); LYMPH % 22.9 % (19.3-53.1); MEAN PLATELET VOLUME 10.60 fl (9.4-12.4); MONO # 0.45 (0.24-0.82); MONO % 6.3 % (4.7-12.5); NEUT # 4.87 (1.56-6.13); NEUT % 68.2 % (34.0-71.1); RED CELL DISTRIBUTION WIDTH 16.2 % (11.6-14.4)
[2025-05-21 22:56] LABS: ALT/SGPT 19.0 U/L (12-78); AST/SGOT 14.0 U/L (15-37); BILIRUBIN TOTAL 1.9 mg/dL (0.3-1.2); BILIRUBIN,CONJUGATED 0.53 mg/dL (0.0-0.2); GLOBULINA 2.3 G/DL (2.4-3.5)
[2025-05-21 23:07] LABS: BUN CREA RATIO 27.0 (7.0-25.0); GFR 318.36; OSMOLALITY SERUM 294.0 MOSM/KG (275-295)
[2025-05-21 23:12] VITALS: BP 138/71; O2SAT 100
[2025-05-22] VITALS (7 sets, daily range): BP systolic 100–154; BP diastolic 61–79; O2SAT 100
[2025-05-22] MEDS ORDERED: INSULIN LISPRO 1,000 UNIT/10 ML UNITS SUBCUTANEO ONE (00:45)
[2025-05-22 00:50] LABS: CREATININE SERUM 0.22 mg/dL (0.55-1.02); GLUCOSE FASTING 266.0 mg/dL (65-100)
[2025-05-22] MEDS ORDERED: INSULIN NPH HUMAN ISOPHANE 1,000 UNITS/10 ML UNITS SUBCUTANEO SCH ×3 (01:00→17:00)
[2025-05-22] MEDS ORDERED: POTASSIUM CHLORIDE 20MEQ/100ML H2O PB IV SCH (01:00)
[2025-05-22] MEDS ORDERED: INSULIN REGULAR, HUMAN 1,000 UNIT/10 ML UNITS IV STA ×2 (07:43→12:01)
[2025-05-22] MEDS ORDERED: SODIUM CHLORIDE 0.45 % 1,000 ML IV SCH (07:45)
[2025-05-22] MEDS ORDERED: POTASSIUM PHOS,M-BASIC-D-BASIC 3 MM/ML VIAL IV SCH (09:00)
[2025-05-22] MEDS ORDERED: TRAMADOL HCL 50 MG TABLET PO ONE (11:15)
[2025-05-22] MEDS ORDERED: INSULIN NPH HUMAN ISOPHANE 1,000 UNITS/10 ML UNITS SUBCUTANEO STA (12:01)
[2025-05-23] VITALS (9 sets, daily range): BP systolic 111–136; BP diastolic 59–69; O2SAT 99–100
[2025-05-23 07:29] LABS: ALT/SGPT 33.0 U/L (12-78); AST/SGOT 45.0 U/L (15-37); BILIRUBIN TOTAL 0.95 mg/dL (0.3-1.2); BUN CREA RATIO 54.0 (7.0-25.0); GFR 287.94; GLOBULINA 2.4 G/DL (2.4-3.5)
[2025-05-23 07:30] LABS: CREATININE SERUM 0.24 mg/dL (0.55-1.02); GLUCOSE FASTING 206.0 mg/dL (65-100); OSMOLALITY SERUM 293.0 MOSM/KG (275-295)
[2025-05-23] MEDS ORDERED: LEVOTHYROXINE SODIUM 100MCG/ML REDILUIDO IV SCH (09:00)
[2025-05-23] MEDS ORDERED: INSULIN NPH HUMAN ISOPHANE 1,000 UNITS/10 ML UNITS SUBCUTANEO SCH ×2 (09:00→17:00)
[2025-05-23] MEDS ORDERED: METHYLPREDNISOLONE SOD SUCC 40 MG VIAL ONE (09:48)
[2025-05-23] MEDS ORDERED: METHYLPREDNISOLONE SOD SUCC 40 MG VIAL IV SCH (10:10)
[2025-05-23] MEDS ORDERED: ALBUTEROL SULFATE 3 ML/2.5 MG AMPUL.NEB IH NR (10:15)
[2025-05-23] MEDS ORDERED: RACEPINEPHRINE HCL 0.5 ML AMPUL IH NR (10:15)
[2025-05-23] MEDS ORDERED: ACETAMINOPHEN 500 MG GEL..CAP PO PRN (11:45)
[2025-05-23] MEDS ORDERED: TRAMADOL HCL 50 MG TABLET PO ONE (11:45)
[2025-05-24 04:00] VITALS: BP 104/63; O2SAT 100
[2025-05-24 07:34] VITALS: BP 117/65; O2SAT 99
[2025-05-24 11:53] VITALS: BP 132/71; O2SAT 100
[2025-05-24 16:00] VITALS: BP 121/71; O2SAT 100
[2025-05-24] MEDS ORDERED: INSULIN NPH HUMAN ISOPHANE 1,000 UNITS/10 ML UNITS SUBCUTANEO SCH (17:00)
[2025-05-24 20:00] VITALS: BP 132/73; O2SAT 100
[2025-05-24 23:24] VITALS: BP 146/64
[2025-05-25 04:00] VITALS: BP 130/77; O2SAT 100
[2025-05-25 07:08] VITALS: BP 130/77; O2SAT 100
[2025-05-25 15:25] VITALS: BP 115/58; O2SAT 100
[2025-05-25] MEDS ORDERED: AA 5 %/CALCIUM/LYTES/DEXT 20 % 2,000 ML CENTRAL SCH (17:00)
[2025-05-25 20:00] VITALS: BP 107/58; O2SAT 100
[2025-05-25 22:43] VITALS: BP 107/65; O2SAT 100
[2025-05-26] VITALS (9 sets, daily range): BP systolic 92–105; BP diastolic 54–55; O2SAT 96–100
[2025-05-26] MEDS ORDERED: LEVOTHYROXINE SODIUM 25 MCG TABLET PO SCH (06:00)
[2025-05-26 07:16] LABS: BASO % 0.3 % (0.1-1.2); EOS # 0.29 (0.04-0.54); EOS % 4.2 % (0.7-7.0); LYMPH # 2.22 (1.18-3.74); LYMPH % 32.4 % (19.3-53.1); MEAN PLATELET VOLUME 11.00 fl (9.4-12.4); MONO # 1.00 (0.24-0.82); NEUT # 3.31 (1.56-6.13); NEUT % 48.2 % (34.0-71.1); RED CELL DISTRIBUTION WIDTH 16.5 % (11.6-14.4)
[2025-05-26 07:36] LABS: MONO % 14.6 % (4.7-12.5)
[2025-05-26 07:56] LABS: ALT/SGPT 44.0 U/L (12-78); AST/SGOT 32.0 U/L (15-37); BILIRUBIN TOTAL 0.86 mg/dL (0.3-1.2); GLOBULINA 2.1 G/DL (2.4-3.5); GLUCOSE FASTING 90.0 mg/dL (65-100); OSMOLALITY SERUM 291.0 MOSM/KG (275-295)
[2025-05-26 07:57] LABS: BUN CREA RATIO 57.0 (7.0-25.0); CREATININE SERUM 0.28 mg/dL (0.55-1.02); GFR 241.02
[2025-05-26] MEDS ORDERED: ZINC OXIDE 30 GM TUBE TOP SCH (11:18)
[2025-05-26] MEDS ORDERED: Cyanocobalamin/Mecobalamin 1 TAB.SL SL SCH (12:45)
[2025-05-26] MEDS ORDERED: SOD FERRIC GLUC COMPLX/SUCROSE 62.5 MG in 0.9 % SODIUM CHLORIDE 50 ML IV SCH (17:00)
[2025-05-27] VITALS (9 sets, daily range): BP systolic 98–110; BP diastolic 59–62; O2SAT 90–100
[2025-05-27] MEDS ORDERED: INSULIN NPH HUM/REG INSULIN HM 1,000 UNIT/10 ML UNITS SUBCUTANEO SCH ×3 (08:00→17:00)
[2025-05-27 08:25] LABS: ALT/SGPT 38.0 U/L (12-78); AST/SGOT 30.0 U/L (15-37); BILIRUBIN TOTAL 1.04 mg/dL (0.3-1.2); BUN CREA RATIO 41.0 (7.0-25.0); GFR 251.34; GLOBULINA 2.3 G/DL (2.4-3.5)
[2025-05-27 08:32] LABS: CREATININE SERUM 0.27 mg/dL (0.55-1.02); GLUCOSE FASTING 217.0 mg/dL (65-100); OSMOLALITY SERUM 293.0 MOSM/KG (275-295)
[2025-05-27] MEDS ORDERED: Cyanocobalamin/Mecobalamin 1 TAB.SL SL SCH (09:00)
[2025-05-27] MEDS ORDERED: ORPHENADRINE CITRATE 100 MG TABLET PO SCH (17:00)
[2025-05-28] VITALS (9 sets, daily range): BP systolic 97–109; BP diastolic 61–70; O2SAT 91–100
[2025-05-28] MEDS ORDERED: INSULIN NPH HUM/REG INSULIN HM 1,000 UNIT/10 ML UNITS SUBCUTANEO STA (12:34)
[2025-05-28] MEDS ORDERED: INSULIN NPH HUM/REG INSULIN HM 1,000 UNIT/10 ML UNITS SUBCUTANEO SCH (17:00)
[2025-05-28] MEDS ORDERED: FLUTICASONE PROPIONATE 50 MCG SPRAY NASAL SCH (21:00)
[2025-05-29] VITALS (7 sets, daily range): BP systolic 108–111; BP diastolic 59–65; O2SAT 95–100
[2025-05-29] MEDS ORDERED: INSULIN NPH HUM/REG INSULIN HM 1,000 UNIT/10 ML UNITS SUBCUTANEO SCH (12:00)
[2025-05-29] MEDS ORDERED: LEVOFLOXACIN750 MG PO (15:45)
[2025-05-29] MEDS ORDERED: INTESTINEX680 M2 PO (15:45)
[2025-05-29] MEDS ORDERED: PEPCID AC20 MG PO (15:45)
== END 2025-05-29 17:30 | disposition home or self-care (01) | DRG 640 ==
LOC: ER 17:12 → ICU-2 22:19 → ICU 05-18 11:40 → MEDI 05-25 20:48
PROVIDERS: General Practice; Internal Medicine; Internal Medicine Endocrinology, Diabetes & Metabolism; ADMIT Internal Medicine; ATTEND Internal Medicine
PROC: 0BH17EZ Insertion of Endotracheal Airway into Trachea, Via Natural or Artificial Opening (ICD-10-PCS; 2025-05-17)
PROC: 5A1955Z Respiratory Ventilation, Greater than 96 Consecutive Hours (ICD-10-PCS; 2025-05-17)
PROC: BW21ZZZ Computerized Tomography (CT Scan) of Abdomen and Pelvis (ICD-10-PCS; 2025-05-17)
PROC: B24BYZZ Ultrasonography of Heart with Aorta using Other Contrast (ICD-10-PCS; 2025-05-17)
PROC: 0W9G3ZZ Drainage of Peritoneal Cavity, Percutaneous Approach (ICD-10-PCS; principal; 2025-05-21)
PROC: 4A12X4Z Monitoring of Cardiac Electrical Activity, External Approach (ICD-10-PCS; 2025-05-26)
PROC: BW21ZZZ Computerized Tomography (CT Scan) of Abdomen and Pelvis (ICD-10-PCS; 2025-05-27)
PROC: B54DZZZ Ultrasonography of Bilateral Lower Extremity Veins (ICD-10-PCS; 2025-05-27)
PROC: CF141ZZ Planar Nuclear Medicine Imaging of Gallbladder using Technetium 99m (Tc-99m) (ICD-10-PCS; 2025-05-28)
DX: E87.20 Acidosis, unspecified (principal); A41.9 Sepsis, unspecified organism; J96.90 Respiratory failure, unspecified, unspecified whether with hypoxia or hypercapnia; R65.10 Systemic inflammatory response syndrome (SIRS) of non-infectious origin without acute organ dysfunction; E11.9 Type 2 diabetes mellitus without complications; Z79.4 Long term (current) use of insulin; E78.49 Other hyperlipidemia; E03.9 Hypothyroidism, unspecified; E87.6 Hypokalemia; D64.9 Anemia, unspecified